=== PATIENT | male | born 1970 | race Caucasian/White ===

== ENCOUNTER 2018-08-05 14:17 | Emergency (ER) | payer BC, OTHER ==
[2018-08-05] MEDS ORDERED: NA CHLORIDE 0.9% 1,000 ML ONE (15:00)
[2018-08-05 15:14] LABS: Absolute Lymphocytes (CBC) 2.7 K/uL (0.7-4.9); Absolute Monocytes 0.9 K/uL (0.1-1.3); Absolute Neutrophil 5.6 K/uL (1.8-8.0); Basophils % 0.5 % (0-1.3); Hematocrit 54.2 % (39.6-49.0); MPV 9.2 fL (7.6-11.3); Monocytes % 9.2 % (3.3-12.3); RBC Red Blood Cell Count 6.08 M/uL (4.33-5.43)
--- NOTE | 2018-08-05 16:13 | RAD REPORT ---
EXAM DESCRIPTION: CT - Head Brain Wo Cont - 08/05/2018 4:06 pm CLINICAL HISTORY: Seizure COMPARISON: None. TECHNIQUE: Axial 5 mm thick images of the head were obtained without IV contrast. All CT scans are performed using dose optimization technique as appropriate and may include automated exposure control or mA/KV adjustment according to patient size. FINDINGS: No intracranial hemorrhage, mass, edema or shift of mid-line structures. No acute infarcti on changes seen. No abnormal extra-axial fluid collections. Ventricles are normal. Mastoid air cells and visualized portions of the paranasal sinuses are clear. No acute bony findings. IMPRESSION: Negative non-contrast CT head examination.
--- NOTE | 2018-08-05 16:16 | EDPHYS ---
Physician Documentation [facility] Name: Stevie Chi Jr Age: 48 yrs Sex: Male : 1970 Arrival Date: 08/05/2018 Time: 14:19 Bed 23 Private MD: ED Physician Jay Delgado HPI: 08/05 15:43 This 48 yrs old Male presents to ER via EMS with complaints of Probable gs Seizure. 15:43 The patient presents after having a single isolated seizure. Character of seizure(s): gs Loss of consciousness: the patient experienced loss of consciousness, Motor activity: generalized, Apnea: the patient did not experience apnea, Circulation: the patient did not experience evidence of pulse disturbance. Seizure onset: just prior to arrival. Context: the seizure(s) was witnessed, by family, occurred while the patient was walking. Seizure Hx: Last seizure: The patient's last seizure was approximately 1 year(s) ago. Associated injury: Head/face: tongue, laceration. Current symptoms: Currently, the patient is not experiencing any symptoms. The patient has experienced a previous episode. The patient has not recently seen a physician. Historical: - Allergies: 14:23 No Known Allergies; la1 - PMHx: 14:23 Myocardial infarction; Hypertension; Seizures; la1 - Immunization history:: Adult Immunizations up to date. - Social history:: Smoking status: Patient uses tobacco products, smokes one-half pack cigarettes per day. - Ebola Screening: : No symptoms or risks identified at this time. ROS: 15:43 All other systems are negative. gs Exam: 15:43 Head/Face: Normocephalic, atraumatic. Eyes: Pupils equal round and reactive to light, gs extra-ocular motions intact. Lids and lashes normal. Conjunctiva and sclera are non-icteric and not injected. Cornea within normal limits. Periorbital areas with no swelling, redness, or edema. Neck: Trachea midline, no thyromegaly or masses palpated, and no cervical lymphadenopathy. Supple, full range of motion without nuchal rigidity, or vertebral point tenderness. No Meningismus. Chest/axilla: Normal chest wall appearance and motion. Nontender with no deformity. No lesions are appreciated. Respiratory: Lungs have equal breath sounds bilaterally, clear to auscultation and percussion. No rales, rhonchi or wheezes noted. No increased work of breathing, no retractions or nasal flaring. Abdomen/GI: Soft, non-tender, with normal bowel sounds. No distension or tympany. No guarding or rebound. No evidence of tenderness throughout. Back: No spinal tenderness. No costovertebral tenderness. Full range of motion. Skin: Warm, dry with normal turgor. Normal color with no rashes, no lesions, and no evidence of cellulitis. MS/ Extremity: Pulses equal, no cyanosis. Neurovascular intact. Full, normal range of motion. Neuro: Awake and alert, GCS 15, oriented to person, place, time, and situation. Cranial nerves II-XII grossly intact. Motor strength 5/5 in all extremities. Sensory grossly intact. Cerebellar exam normal. Normal gait. 15:43 Constitutional: The patient appears alert, awake. 15:43 ENT: Mouth: Tongue: has a laceration, approximately 2cm(s), ventral. 15:43 Cardiovascular: Rate: tachycardic, Rhythm: regular, Pulses: no pulse deficits are appreciated. 15:43 ECG was reviewed by the Attending Physician. Vital Signs: 14:22 BP 154 / 88; Pulse 110; Resp 18; Pulse Ox 95% on R/A; Weight 99.79 kg; Height 6 ft. la1 (182.88 cm); 15:04 Resp 18; Temp 97.6; la1 16:55 BP 156 / 74; Pulse 81; Resp 16; Pulse Ox 98% on R/A; la1 14:22 Body Mass Index 29.84 (99.79 kg, 182.88 cm) la1 Jose David Coma Score: 14:25 Eye Response: spontaneous(4). Verbal Response: oriented(5). Motor Response: obeys la1 commands(6). Total: 15. MDM: 14:47 Patient medically screened. 08/05 14:48 Order name: CBC with Diff; Complete Time: 16:13 08/05 14:48 Order name: Basic Metabolic Panel; Complete Time: 16:13 08/05 14:48 Order name: EKG; Complete Time: 14:48 08/05 14:48 Order name: EKG - Nurse/Tech; Complete Time: 15:04 08/05 15:48 Order name: CT Head Brain wo Cont; Complete Time: 16:14 gs EC:43 Rate is 103 beats/min. Rhythm is regular. AL interval is normal. QRS interval is gs prolonged. T waves are Normal. No ST changes noted. Clinical impression: Abnormal EKG without significant change. Interpreted by me. Administered Medications: 15:03 Drug: NS 0.9% 1000 ml Route: IV; Rate: 1 bolus; Site: left antecubital; la1 16:55 Follow up: IV Status: Completed infusion la1 Disposition: 08/05/18 16:15 Discharged to Home. Impression: Epilepsy and recurrent seizures. - Condition is Stable. - Discharge Instructions: Alcohol Intoxication, Alcohol Withdrawal, Seizure, Adult. - Prescriptions for Valium 10 mg Oral Tablet - take 1 tablet by ORAL route every 12 hours As needed; 14 tablet. - Medication Reconciliation Form, Thank You Letter, Antibiotic Education, Prescription Opioid Use form. - Follow up: Jose Padron MD; When: 2 - 3 days; Reason: Re-evaluation by your physician. Signatures: Dispatcher [employer] EDMS Tano Russell RN [facility] Jay Delgado MD MD Corrections: (The following items were deleted from the chart) 16:56 16:15 08/05/2018 16:15 Discharged to Home. Impression: Epilepsy and recurrent seizures. la1 Condition is Stable. Forms are Medication Reconciliation Form, Thank You Letter, Antibiotic Education, Prescription Opioid Use. Follow up: Jose Padron; When: 2 - 3 days; Reason: Re-evaluation by your physician. gs
--- NOTE | 2018-08-05 16:16 | ER ---
Nurse's Notes [facility] Name: Stevie Chi Jr Age: 48 yrs Sex: Male : 1970 Arrival Date: 08/05/2018 Time: 14:19 Bed 23 Private MD: Diagnosis: Epilepsy and recurrent seizures Presentation: 08/05 14:20 Presenting complaint: EMS states: Pt was walking out to the septic tank, became la1 disoriented and fell on the ground, pt had unwitnessed seizure, bit tongue, was post-ictal upon ems arrival, has first seizure about 6 months ago related to etoh detox but has been drinking lately, had seven beers las night. Transition of care: patient was not received from another setting of care. Onset of symptoms was August 05, 2018. Risk Assessment: Do you want to hurt yourself or someone else? Patient reports no desire to harm self or others. Initial Sepsis Screen: Does the patient meet any 2 criteria? No. Patient's initial sepsis screen is negative. Does the patient have a suspected source of infection? No. Patient's initial sepsis screen is negative. Care prior to arrival: Medication(s) given: Ativan 2mg IV. 14:20 Method Of Arrival: EMS: [facility] la1 14:20 Acuity: LOLITA 3 la1 Historical: - Allergies: 14:23 No Known Allergies; la1 - PMHx: 14:23 Myocardial infarction; Hypertension; Seizures; la1 - Immunization history:: Adult Immunizations up to date. - Social history:: Smoking status: Patient uses tobacco products, smokes one-half pack cigarettes per day. - Ebola Screening: : No symptoms or risks identified at this time. Screenin:24 Abuse screen: Denies threats or abuse. Nutritional screening: No deficits noted. la1 Tuberculosis screening: No symptoms or risk factors identified. Fall Risk None identified. Assessment: 14:24 General: Appears in no apparent distress. Behavior is calm, cooperative. Pain: la1 Complains of pain in bottom of tongue. Neuro: Level of Consciousness is awake, alert, obeys commands, Oriented to person, place, time, situation, Moves all extremities. Full function Speech is normal, Facial symmetry appears normal, Pupils are PERRLA. Cardiovascular: Capillary refill < 3 seconds Patient's skin is warm and dry. Respiratory: Airway is patent Respiratory effort is even, unlabored, Respiratory pattern is regular, symmetrical, Breath sounds are clear bilaterally. GI: Reports nausea. Vital Signs: 14:22 BP 154 / 88; Pulse 110; Resp 18; Pulse Ox 95% on R/A; Weight 99.79 kg; Height 6 ft. la1 (182.88 cm); 15:04 Resp 18; Temp 97.6; la1 16:55 BP 156 / 74; Pulse 81; Resp 16; Pulse Ox 98% on R/A; la1 14:22 Body Mass Index 29.84 (99.79 kg, 182.88 cm) la1 Jose David Coma Score: 14:25 Eye Response: spontaneous(4). Verbal Response: oriented(5). Motor Response: obeys la1 commands(6). Total: 15. ED Course: 14:19 Patient arrived in ED. la1 14:22 Jay Delgado MD is Attending Physician. gs 14:22 Triage completed. la1 14:23 Arm band placed on right wrist. la1 14:23 Maintain EMS IV. Dressing intact. Good blood return noted. Site clean \T\ dry. Gauge \T\ la 1 site: 18G LAC. 14:24 Call light in reach. Side rails up X 1. Seizure precautions initiated. Pulse ox on. la1 NIBP on. 14:49 Tano Russell, BRIANNA is Primary Nurse. la1 15:37 Inserted saline lock: 22 gauge in left hand, using aseptic technique. la1 16:04 CT completed. Patient moved to CT via stretcher. Patient moved back from CT. bq 16:05 CT Head Brain wo Cont In Process Unspecified. EDMS 16:14 Jose Padron MD is Referral Physician. gs 16:55 No provider procedures requiring assistance completed. IV discontinued, intact, la1 bleeding controlled, No redness/swelling at site. Pressure dressing applied. Administered Medications: 15:03 Drug: NS 0.9% 1000 ml Route: IV; Rate: 1 bolus; Site: left antecubital; la1 16:55 Follow up: IV Status: Completed infusion la1 Outcome: 16:15 Discharge ordered by . gs 16:55 Discharged to home ambulatory. la1 16:55 Condition: stable 16:55 Instructed on 16:55 Discharge instructions given to patient, family, Instructed on discharge instructions, follow up and referral plans. medication usage, Demonstrated understanding of instructions, follow-up care, medications, Prescriptions given X 1. 16:56 Patient left the ED. la1 Signatures: Dispatcher [employer] Enid Santana Lee, RN RN la1 Jay Delgado MD MD
--- NOTE | 2018-08-05 22:41 | EKG ---
Test Date: 2018-08-05 Test Time: 14:58:39 [employer]: [place] MEASUREMENT RESULTS: Intervals: Rate: 103 KS: 178 QRSD: 106 QT: 356 QTc: 466 Storden: P: 36 KS: 178 QRS: 2 T: 14 INTERPRETIVE STATEMENTS: Sinus tachycardia Incomplete right bundle branch block Borderline ECG No previous ECG available for comparison Electronically Signed On 08-05-18 22:40:22 FLUID DYNAMICIST by David Sosa
== END 2018-08-05 16:56 | disposition home or self-care (01) ==
LOC: ER 14:17
DX: G40.802 Other epilepsy, not intractable, without status epilepticus (principal); I10 Essential (primary) hypertension; F17.210 Nicotine dependence, cigarettes, uncomplicated
CPT/HCPCS: 36415; 70450; 80048; 85025; 93005; 96360; 96361; 99284; J7030